=== PATIENT | female | born 1985 | race Caucasian/White ===

== ENCOUNTER 2022-07-11 19:52 | Emergency (ER) | payer MEDICAID ==
[2022-07-11] MEDS ORDERED: Ondansetron 4 MG Tab.DIS PO ONE (22:51)
[2022-07-11] MEDS ORDERED: Ketorolac 30 MG/ML SDV IM ONE (22:51)
[2022-07-11] MEDS ORDERED: HYDROmorphone 1 MG/ML Syringe IM ONE (22:51)
== END 2022-07-11 23:15 | disposition home or self-care (01) ==
LOC: MW.ED 19:52
DX: S39.011A Strain of muscle, fascia and tendon of abdomen, initial encounter (principal); K40.90 Unilateral inguinal hernia, without obstruction or gangrene, not specified as recurrent; Z72.0 Tobacco use; X50.0XXA Overexertion from strenuous movement or load, initial encounter
CPT/HCPCS: 96372; 99283; A9270; J1170; J1885